=== PATIENT | female | born 1950 | race Caucasian/White ===

== ENCOUNTER 2018-02-17 11:00 | Outpatient (RCR) | payer MEDICARE, SELFPAY ==
--- NOTE | 2017-12-14 14:45 | HP.PTEVAL_ITS ---
Patient's Visit Information JAVIER LOCKE is a 67 year old F referred to Physical Therapy by Andrew Reich DO [email or web address] with a diagnosis of LEFT SHOULDER ARTHRITIS AND BONE SPURS. Date of Evaluation: 12/14/17 Physical Therapist: Ministerio Anguiano PT, - Visit Plan Frequency: 2x /Week Duration: 4 Weeks Plan: manual therapy G-H 2-3 ,SACPULAR,AAROM SHOULDER ,RTC /SCAPUALR STRENGTHENING, POSTURAL,EX'S,modalties - Subjective Subjective: This 67 y/o female presents physical therapy left shoulder arthritis and bone spurs. Patient has had left shoulder pain 2 months. Patient had inscidous onset pain without injury. Location of pain stiffness with tightness lateral deltoid. Patient has difficulty with ADL'S ,housework tasks , and self hygine above [address] edwards x-rays spurs/OA. Denies parathesia /tingling. Sleeping okay at night.Patient is left hand dominent. VOCATION: retired. 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 PALAPTION: tender AC. NEURO: denies parathesia/tingling,reflexes 2/3 C5-6-7. AROM: flexion 130 degrees ,90 degrees abduction 1:1 scapular-humeral function. PROM : shoulder flexion 150 degreees,abd 155 degrees ,ER 60 degrees,IR 50 degrees. CAPSULAR RESTRICTION: mild mod G-H. FUNCTION: IR to hip. MMT: RTC 4-/5,lateral deltoid 3+/5, scapular 3-/5 - Special Tests L Shoulder External Rotation Lag Test - RC Tear: Negative L Shoulder Supine Impingement Test - RC Tear: Negative L Shoulder Lift Off Test - Subscapular Tear: Negative L Shoulder Drop Sign - IS Test: Negative L Shoulder Empty Can - SS: Negative L Shoulder Belly Press - SupScap: Negative L Shoulder Neer - Impingement: Positive L Shoulder Bright Robby - Impingement: Positive - Goals Goal 1:: Independant with HEP Goal Time Frame: 4-6 Weeks Goal 2:: Independant with posture for ADL'S Goal Time Frame: 4-6 Weeks Goal 3:: Increase AROM ahoulder flexion/abduction 150 degrees ER 80 and IR 70 DEGREES FOR ACTIVITIES ABOVE 90 degrees and reaching behind back. Goal Time Frame: 4-6 Weeks Goal 4:: Patient to increase strength deltoid 4-/5,RTC 4/5 to improve function above 90 degrees for ADL'S above 90 degrees. Goal Time Frame: 4-6 Weeks Goal 5:: Patient be able to pefrorm ADL'S and housework tasks above 90 degrees Goal Time Frame: 4-6 Weeks - Rehabilitation Potential Physical Therapy Diagnosis: This 67 y/o female presents with RTC/deltoid weakness along with capsular tightness affects IR and ER most limited ,decrease AROM for function thus benifit from skilled PT Rehabilitation Potential: Good - Anticipated Interventions Patient/Client Instruction: Educate patient on: Condition, Plan of Care For the Purpose of:: To decrease pain, To increase ROM, To improve muscle performance and motor function, To improve ability to perform ADL's, To increase tolerance to activity/condition/position, To improve performance and independence with ADL's, To improve ability of physical actions for home/ community/work/leisure, To improve gait and locomotor functions, To improve health of tissue, To decrease soft tissue restriction, To increase flexibility/ ROM, To improve ability to perform tasks related to life management Therapeutic Exercise to Include: Strength training, Postural training, Flexibilty training, Passive ROM, Active ROM, Scapular Strength/Stabilization Comment: RTC For the Purpose of:: To decrease pain, To increase ROM, To improve nutrient delivery to tissue, To increase oxygenation perfusion, To improve muscle performance and motor function, To improve ability to perform ADL's, To increase tolerance to activity/condition/position, To improve performance and independence with ADL's, To improve ability of physical actions for home/ community/work/leisure, To improve health of tissue, To decrease soft tissue restriction, To increase flexibility/ROM, To assume or resume ADL's, To improve ability to perform tasks related to life management Manual Therapy Techniques to Include: Mobilization Comment: G-H For the Purpose of:: To decrease pain, To increase ROM, To improve nutrient delivery to tissue, To increase oxygenation perfusion, To improve health of tissue, To decrease soft tissue restriction, To increase flexibility/ROM, To improve ability to perform tasks related to life management TENS: Yes IF ES: Yes Cryotherapy (ice pack, ice massage): Yes Thermo therapy (hot pack): Yes Ultrasound (thermal/non thermal): Yes For the Purpose of:: To decrease pain, To increase ROM, To improve health of tissue, To decrease soft tissue restriction, To increase flexibility/ROM Thank you for the opportunity to evaluate your patient. For Medicare and Medicare HMO plans, please review the plan of care and approve it. It will need to be FAXED BACK to us at [phone] for Medicare purposes. Please let me know if there are questions or concerns regarding this plan of care. Physician Signature: Date:
--- NOTE | 2018-01-13 09:57 | HP.PTREVAL_ITS ---
Andrew Reich DO, MSTUTZ2 It has been my pleasure to treat JAVIER LOCKE over the last 9 visits for LEFT SHOULDER ARTHRITIS AND BONE SPURS. Please see the progress note below for an update on the physical therapy plan of care! Subjective: Doing better ,need to get stronger,motion is better. Improving with ADLS' ,PUTTING COAT ON REACING BEHIND BACK. More stiffnes Objective/Function: POSTURE: mild foward posture. NEURO: inact. PALAPTION: inact. AROM: flexion 150 degrees,abd 140 degrees ,ER 85,IR S1. MMT: RTC 4/5 , DELTOID 4-/5 A ,L 3+/5 Plan Plan: CONT WITH POC 2XWEEK FOR 4WEEKS Goals Goal 1:: Independant with HEP Goal Time Frame: 4-6 Weeks Goal Progress: Progressing Goal 2:: Independant with posture for ADL'S Goal Time Frame: 4-6 Weeks Goal Progress: Progressing Goal 3:: Increase AROM ahoulder flexion/abduction 150 degrees 9R 90 and IR 70 DEGREES FOR ACTIVITIES ABOVE 90 degrees and reaching behind back. Goal Time Frame: 4-6 Weeks Goal Progress: Progressing Goal 4:: Patient to increase strength deltoid 4-/5,RTC 4/5 to improve function above 90 degrees for ADL'S above 90 degrees. Goal Time Frame: 4-6 Weeks Goal Progress: Progressing Goal 5:: Patient be able to pefrorm ADL'S and housework tasks above 90 degrees Goal Time Frame: 4-6 Weeks Goal Progress: Progressing Anticipated Interventions Patient/Client Instruction: Educate patient on: Condition, Plan of Care For the Purpose of:: To decrease pain, To increase ROM, To improve muscle performance and motor function, To improve ability to perform ADL's, To increase tolerance to activity/condition/position, To improve performance and independence with ADL's, To improve ability of physical actions for home/ community/work/leisure, To improve gait and locomotor functions, To improve health of tissue, To decrease soft tissue restriction, To increase flexibility/ ROM, To improve ability to perform tasks related to life management Therapeutic Exercise to Include: Strength training, Postural training, Flexibilty training, Passive ROM, Active ROM, Scapular Strength/Stabilization Comment: RTC For the Purpose of:: To decrease pain, To increase ROM, To improve nutrient delivery to tissue, To increase oxygenation perfusion, To improve muscle performance and motor function, To improve ability to perform ADL's, To increase tolerance to activity/condition/position, To improve performance and independence with ADL's, To improve ability of physical actions for home/ community/work/leisure, To improve health of tissue, To decrease soft tissue restriction, To increase flexibility/ROM, To assume or resume ADL's, To improve ability to perform tasks related to life management Manual Therapy Techniques to Include: Mobilization Comment: G-H For the Purpose of:: To decrease pain, To increase ROM, To improve nutrient delivery to tissue, To increase oxygenation perfusion, To improve health of tissue, To decrease soft tissue restriction, To increase flexibility/ROM, To improve ability to perform tasks related to life management TENS: Yes IF ES: Yes Cryotherapy (ice pack, ice massage): Yes Thermo therapy (hot pack): Yes Ultrasound (thermal/non thermal): Yes For the Purpose of:: To decrease pain, To increase ROM, To improve health of tissue, To decrease soft tissue restriction, To increase flexibility/ROM Please do not hesitate to contact me at [phone] by phone or Fax: if you have questions or concerns regarding this new plan of care! Sincerely, Ministerio Anguiano PT,
--- NOTE | 2018-02-17 11:25 | HP.PTDCSUM ---
HP - PT D/C Summary It has been my pleasure to treat JAVIER LOCKE under orders from Andrew Reich DO, for the diagnosis of LEFT SHOULDER ARTHRITIS AND BONE SPURS for a total of 17 visit(s). Discharge Date: 02/17/18 Please see the following information for a summary of their discharge status. - Subjective Subjective: Doing well..No problems with ADL'S and housework tasks above 90 degrees - Pain Left Shoulder Pain Intensity (Out of 10): 0 - Overall Improvement % Improvement: 100 - Objective Objective/Function: POSTURE: mild foward posture. PALAPTION: unremarkable. AROM: shoulder flexion 150 degrees,abd 150 degrees,ER 85 degrees. MMT: RTC 4/5 ,DELTOID 4-/5 - Goals Goal 1:: Independant with HEP Goal Progress: Goal Met Goal 2:: Independant with posture for ADL'S Goal Progress: Goal Met Goal 3:: Increase AROM ahoulder flexion/abduction 150 degrees 9R 90 and IR 70 DEGREES FOR ACTIVITIES ABOVE 90 degrees and reaching behind back. Goal Progress: Goal Met Goal 4:: Patient to increase strength deltoid 4-/5,RTC 4/5 to improve function above 90 degrees for ADL'S above 90 degrees. Goal Progress: Goal Met Goal 5:: Patient be able to pefrorm ADL'S and housework tasks above 90 degrees Goal Progress: Goal Met - Plan Plan: D/C HEP - D/C Information Discharge Comments: MET GOALS HEP If there are questions or concerns regarding this patient's physical therapy, please feel free to call me at [phone]. Thank you for the referral of this patient. Sincerely, Ministerio Anguiano, PT,
== END 2018-02-17 19:00 | disposition home or self-care (01) ==
LOC: PT 11:00
PROVIDERS: Family Provider Family Medicine; PCP Family Medicine; Visit Provider Family Medicine
DX: M19.012 Primary osteoarthritis, left shoulder (principal); M77.9 Enthesopathy, unspecified
CPT/HCPCS: 97110; 97140; 97162; 97530

== ENCOUNTER → 2018-05-12 10:32 | Outpatient (CLI) | payer MEDICARE, SELFPAY ==
[2018-05-12 12:23] LABS: Absolute Lymphocyte Count 1.12 X10^3/ul (0.83-4.51); Absolute Neutrophil Count 2.6 X10^3/uL (2.0-7.7); Basophil# 0.04 X10^3/uL; Eosinophil# 0.15 X10^3/uL; Eosinophils% 3.6 % (0-5); Hematocrit 43.6 % (37-47); Hemoglobin 13.3 g/dl (12.0-15.0); Lymphocyte # 1.12 X10^3/ul (4.0); Lymphocyte % 26.9 % (19-41); Mean Corp Hgb Conc 30.5 g/gl (32-36); Mean Corpuscular Volume 98.4 fL (81-99); Mean Platelet Vol. 9.5 fl (6.2-12.0); Monocyte# 0.25 X10^3/uL; Neutrophil # 2.59 X10^3/uL (2.7-7.7); Platelet Count 373 K/mm3 (150-450); RBC Distribution Width CV 12.9 % (11.6-14.6); RBC Distribution Width SD 46.7 fl (35.1-43.9); Red Blood Count 4.43 M/mm3 (4.2-5.4); White Blood Count 4.2 K/mm3 (4.4-11.0)
[2018-05-12 12:36] LABS: POSITIVE COUNT NO; POSITIVE DIFFERENTIAL NO; POSITIVE MORPHOLOGY NO
[2018-05-12 12:43] LABS: ALB/GLOB Ratio 0.8 RATIO (0.9-2.4); AST(SGOT) 20 U/L (15-37); Alanine Aminotransfer ALT/SGPT 25 U/L (13-56); Albumin, Serum 3.5 g/dL (3.2-5.0); Alkaline Phosphatase 84 U/L (45-117); Anion Gap 9 (5-15); BUN 9 mg/dL (7-18); BUN/Creat Ratio 12.6 RATIO (10-20); Calcium,Total 9.4 mg/dL (8.5-10.1); Chloride 107 mmol/L (98-107); Creatinine, Serum 0.72 mg/dL (0.55-1.02); EST Glomerular Filtration Rate 86 mL/min (>60); Est Glom Filt Rate - Afr Amer 104 mL/min (>60); Globulin 4.5 g/dL (2.2-4.2); Glucose 106 mg/dL (74-106); Sodium Level 143 mmol/L (136-145); T4 Free Direct 1.26 ng/dL (0.76-1.46); Thyroid Stim Hormone (TSH) 1.42 uIU/mL (0.358-3.74)
== END ==
PROVIDERS: Visit Provider Family Medicine
DX: I10 Essential (primary) hypertension (principal); R53.83 Other fatigue; R55 Syncope and collapse; R25.1 Tremor, unspecified
CPT/HCPCS: 36415; 80053; 84439; 84443; 85025